=== PATIENT | male | born 1995 | race Caucasian/White ===

== ENCOUNTER 2022-08-16 17:41 | Inpatient (IN) | payer MEDICAID, SELFPAY ==
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
[2022-08-16 17:48] VITALS: BP 115/78; PULSE 104; RESP 16; TEMP 36.6; O2SAT 99; BMI 21.2
[2022-08-16 18:13] VITALS: BP 115/78; PULSE 104; RESP 16; TEMP 36.6; O2SAT 99
[2022-08-16 18:32] LABS: Basophils # 0.1 10^3/uL (0.0-0.1); Basophils % 1.3 %; Eosinophils # 0.4 10^3/uL (0.0-0.8); Eosinophils % 4.9 %; Hemoglobin 17.1 g/dL (11.7-16.6); Lymphocytes # 2.3 10^3/uL (0.8-4.8); Mean Corpuscular HGB Conc 32.9 g/dL (30.0-36.0); Mean Corpuscular Hemoglobin 29.9 pg (28.0-34.0); Mean Corpuscular Volume 90.9 fl (80-94); Mean Platelet Volume 9.9 fL (7.4-10.4); Monocytes # 0.6 10^3/uL (0.2-0.9); Monocytes % 7.8 %; Neutrophils % 54.6 %; Nucleated Red Blood Cells % 0 %; Platelet Count 305 10^3/cmm (130-400); Red Blood Count 5.72 10^6/uL (4.1-5.3); Red Cell Distribution Width 11.9 % (12.1-15.1); White Blood Count 7.5 10^3/uL (4.0-10.0)
[2022-08-16 18:49] LABS: Acetaminophen < 5.0 ug/mL (10-30); Alanine Aminotransferase 24 U/L (0-41); Albumin Level 4.3 g/dL (3.5-5.2); Alcohol Level 176 mg/dL (0-10); Alkaline Phosphatase 91 U/L (40-130); Anion Gap 13.8 (5-19); Aspartate Amino Transferase 28 U/L (0-40); Blood Urea Nitrogen 8 mg/dL (6-20); Calcium 8.7 mg/dL (8.5-10.5); Carbon Dioxide 27 mmol/L (22-29); Chloride 105 mmol/L (98-107); Globulin 2.7 g/dL (1.3-4.6); Glomerular Filtration Rate 133.3 mL/min (90-130); Glucose 102 mg/dL (65-115); Osmolality Calculated 293 mOsm/kg (285-295); Potassium 3.8 mmol/L (3.5-5.1); Salicylate < 0.3 mg/dL (3-10); Sodium 142 mmol/L (136-145); Total Bilirubin 0.3 mg/dL (0.15-1.2)
[2022-08-16 22:00] VITALS: BP 136/93; PULSE 98; RESP 17; TEMP 36.7; O2SAT 100
[2022-08-16] MEDS: hyDROXYzine 25 mg Capsule 50 MG PO (22:36)
[2022-08-16] MEDS: trazodone 50 mg Tablet PO (22:36)
[2022-08-16] MEDS: guanfacine 1 mg Tablet PO (22:36)
[2022-08-16] MEDS: docusate sodium 100 mg Capsule PO (22:36)
[2022-08-16 22:48] LABS: Amphetamines Screen Urine Negative (Negative); Barbiturates Screen Urine Negative (Negative); Benzodiazepines Screen Urine Negative (Negative); Cocaine Screen Urine Negative (Negative); Opiate Screen Urine Negative (Negative); PCP Screen Urine Negative (Negative); THC Screen Urine Negative (Negative)
[2022-08-17 06:00] VITALS: BP 142/101; PULSE 109; RESP 17; TEMP 36.6; O2SAT 96
[2022-08-17] MEDS: multivitamin therapeutic Tablet 1 TAB PO (08:38)
[2022-08-17] MEDS: folic acid 1 mg Tablet PO (08:38)
[2022-08-17] MEDS: docusate sodium 100 mg Capsule PO (08:38)
[2022-08-17] MEDS: thiamine 100 mg Tablet PO (08:38)
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
[2022-08-17 13:36] VITALS: BP 164/79; PULSE 84; RESP 16; TEMP 36.7; O2SAT 98
[2022-08-17] MEDS: duloxetine 30 mg Capsule PO (14:28)
[2022-08-17] MEDS: trazodone 50 mg Tablet PO (19:53)
[2022-08-17] MEDS: guanfacine 1 mg Tablet PO (19:53)
[2022-08-17 20:40] VITALS: BP 137/96; PULSE 100; RESP 18; TEMP 36.7; O2SAT 96
[2022-08-18 06:00] VITALS: BP 141/87; PULSE 113; RESP 18; TEMP 36.7; O2SAT 95
[2022-08-18] MEDS: thiamine 100 mg Tablet PO (08:27)
[2022-08-18] MEDS: folic acid 1 mg Tablet PO (08:27)
[2022-08-18] MEDS: duloxetine 30 mg Capsule PO (08:27)
[2022-08-18] MEDS: multivitamin therapeutic Tablet 1 TAB PO (08:27)
[2022-08-18] MEDS: docusate sodium 100 mg Capsule PO (12:56)
--- NOTE | 2022-08-18 13:13 | W.PM.NPUPNS ---
Subjective NPU Subjective: Patient is a 27-year-old white male admitted with a history of cerebral palsy, depression and PTSD. Patient reported having some chronic pain issues. He had reported not having a place to stay currently as he does not wish to return to live with his sister due to his significant conflict in that home. He had reported a history of occasional anger outburst but minimized any nightmares or flashbacks currently. He was agreeable to come to doing to try to obtain psychotherapy and stated that he needed medications to help with his depression. He had reported extended periods of depressed mood feelings of hopelessness and sadness with occasional suicidal thoughts. He reported no suicidal thoughts today and reported some improvement in sleep. He reported no side effects from the Cymbalta at this time. Mental Status Exam MSE Comments: Patient is a 27-year-old white male who appeared younger than his stated age he was friendly and cooperative on interview with normal hygiene and normal gait with no evidence of any abnormal involuntary motor movements tics or tremors appreciated. His speech was somewhat slow but steady with normal volume and productivity. His mood was described as depressed. His affect was mood congruent and restricted in range. There was no evidence of any abnormal involuntary motor movements tics or tremors appreciated. There is no clear evidence of delusional thinking. He did not appear to be responding to internal stimuli. His attention span was varied. He had endorsed suicidal thoughts with no active plan at this time. He denied any homicidal ideation. His insight was poor. His judgment was poor as well. His impulse control was limited. Vitals/I&O/Wt Last Vital Signs Temp 98.1 F 08/18/22 06:00 Pulse 113 H 08/18/22 06:00 Resp 18 08/18/22 06:00 BP 141/87 08/18/22 06:00 Pulse Ox 95 08/18/22 06:00 O2 Del Method 08/18/22 06:00 Weight last 48 hrs Weight 63.503 kg Data NPU 08/16/22 18:25 08/16/22 18:25 A&P Assessment and plan (1) Major depressive disorder: (2) PTSD (post-traumatic stress disorder): (3) Suicidal ideation: Plan Moisés is a 27-year-old white male with a history of cerebral palsy with a additional history of depression and PTSD admitted with suicidal thoughts with significant psychosocial stressors including homelessness. 1.? Continue Cymbalta 30mg daily with increase to 60mg in 1-2 days. 2.? Encourage individual, group and milieu therapy 3.? Continue q-15 minute check for safety 4.? Recommend sober living treatment at the highest level of care to which the patient is willing to commit. Involuntary Hold Information 96 Hour Hold: 96 Hour Involuntary Admission: Yes 96 Hour Hold Ending Date: 08/22/22 96 Hour Hold Ending Time: 18:40 Attestations NPU Medical Necessity Statement*: Inpatient hospitalization is medically necessary and the clinically appropriate intervention at this time. We will monitor medications and make changes as indicated with likely stay in 1-2 days. Coding Level of Care Code Established Pt Acute Framing Manager for Audrag Fwd Patient Type Established History Problem Focused Exam Problem Focused Medical Decision Making Straight Forward Diagnoses Major depressive disorder F32.9 PTSD (post-traumatic stress disorder) F43.10 Suicidal ideation R45.852
[2022-08-18 14:00] VITALS: BP 148/96; PULSE 84; RESP 16; TEMP 36.6; O2SAT 96
[2022-08-18] MEDS: trazodone 50 mg Tablet PO (20:33)
[2022-08-18] MEDS: guanfacine 1 mg Tablet PO (20:33)
[2022-08-18] MEDS: hyDROXYzine 25 mg Capsule 50 MG PO (20:33)
[2022-08-18 20:45] VITALS: BP 151/97; PULSE 108; RESP 18; TEMP 36.8; O2SAT 99
[2022-08-19 06:00] VITALS: BP 117/79; PULSE 100; RESP 16; TEMP 36.4; O2SAT 98
[2022-08-19] MEDS: multivitamin therapeutic Tablet 1 TAB PO (10:01)
[2022-08-19] MEDS: duloxetine 30 mg Capsule PO (10:01)
[2022-08-19] MEDS: folic acid 1 mg Tablet PO (10:01)
[2022-08-19] MEDS: thiamine 100 mg Tablet PO (10:02)
[2022-08-19 14:00] VITALS: BP 131/79; PULSE 89; RESP 18; TEMP 36.6; O2SAT 99
--- NOTE | 2022-08-19 18:17 | W.PM.NPUPNS ---
Subjective NPU Subjective: Patient is a 27-year-old white male admitted with a history of cerebral palsy, depression and PTSD. Patient had reported being bored. He reported no side effects from his Cymbalta. He had acknowledged having frustration with dealing with negativity in his household. He reported no feelings of hopelessness and stated that he simply wished to find a different place to live when he left here. He did not endorse any suicidal thoughts. He reported no nightmares currently. He reported problems with low energy and low motivation. Mental Status Exam MSE Comments: Patient is a 27-year-old white male who appeared younger than his stated age he was friendly and cooperative on interview with normal hygiene and normal gait with no evidence of any abnormal involuntary motor movements tics or tremors appreciated. His speech was somewhat slow but steady with normal volume and productivity. His mood was described as depressed. His affect was mood congruent and restricted in range. There was no evidence of any abnormal involuntary motor movements tics or tremors appreciated. There is no clear evidence of delusional thinking. He did not appear to be responding to internal stimuli. His attention span was varied. He had endorsed suicidal thoughts with no active plan at this time. He denied any homicidal ideation. His insight was poor. His judgment was poor as well. His impulse control was limited. Vitals/I&O/Wt Last Vital Signs Temp 97.9 F 08/19/22 14:00 Pulse 89 08/19/22 14:00 Resp 18 08/19/22 14:00 BP 131/79 08/19/22 14:00 Pulse Ox 99 08/19/22 14:00 O2 Del Method 08/19/22 06:00 Data NPU 08/16/22 18:25 08/16/22 18:25 A&P Assessment and plan (1) Major depressive disorder: (2) PTSD (post-traumatic stress disorder): (3) Suicidal ideation: Plan Moisés is a 27-year-old white male with a history of cerebral palsy with a additional history of depression and PTSD admitted with suicidal thoughts with significant psychosocial stressors including homelessness. 1.? Continue Cymbalta 30mg daily with increase to 60mg in 1-2 days. 2.? Encourage individual, group and milieu therapy 3.? Continue q-15 minute check for safety 4.? Recommend sober living treatment at the highest level of care to which the patient is willing to commit. Involuntary Hold Information 96 Hour Hold: 96 Hour Involuntary Admission: Yes 96 Hour Hold Ending Date: 08/22/22 96 Hour Hold Ending Time: 18:40 Attestations NPU Medical Necessity Statement*: Inpatient hospitalization is medically necessary and the clinically appropriate intervention at this time. We will monitor medications and make changes as indicated with likely stay in 1-2 days. Coding Level of Care Code Established Pt Acute Paper Twister for Chg Fwd Patient Type Established History Problem Focused Exam Problem Focused Medical Decision Making Straight Forward Diagnoses Major depressive disorder F32.9 PTSD (post-traumatic stress disorder) F43.10 Suicidal ideation R45.853
[2022-08-19 20:24] VITALS: BP 137/90; PULSE 94; RESP 18; TEMP 36.7; O2SAT 99
[2022-08-19] MEDS: trazodone 50 mg Tablet PO (20:43)
[2022-08-19] MEDS: guanfacine 1 mg Tablet PO (23:59)
[2022-08-20] MEDS: multivitamin therapeutic Tablet 1 TAB PO (08:46)
[2022-08-20] MEDS: folic acid 1 mg Tablet PO (08:46)
[2022-08-20] MEDS: thiamine 100 mg Tablet PO (08:46)
[2022-08-20] MEDS: duloxetine 30 mg Capsule PO (08:46)
[2022-08-20 14:00] VITALS: BP 131/84; PULSE 110; RESP 18; TEMP 36.9; O2SAT 98
--- NOTE | 2022-08-20 15:12 | W.PM.NPUPNS ---
Subjective NPU Subjective: Patient is a 27-year-old white male admitted with a history of cerebral palsy, depression and PTSD. The patient had reported a myriad of side effects associated with his Cymbalta. He described that his heart is been beating faster. He described having some nighttime confusion as he had read in the list of side effects of medication. He had complained of dry mouth and reported having difficulties with urination since he had arrived in the hospital. The patient had reported depressed mood and reported that he had difficulties with managing pain. He reports having significant muscle aches and due to his longstanding history of cerebral palsy. He had complained of having low energy and low motivation. He had reported some hope at being able to live in an alternative living situation away from his sister as he states that that would help him immensely. Mental Status Exam MSE Comments: Patient is a 27-year-old white male who appeared younger than his stated age he was friendly and cooperative on interview with normal hygiene and normal gait with no evidence of any abnormal involuntary motor movements tics or tremors appreciated. He endorsed a variety of somatic complaints. His speech was somewhat slow but steady with normal volume and productivity. His mood was described as depressed. His affect was mood congruent and restricted in range. There was no evidence of any abnormal involuntary motor movements tics or tremors appreciated. There is no clear evidence of delusional thinking. He did not appear to be responding to internal stimuli. His attention span was varied. He had endorsed suicidal thoughts with no active plan at this time. He denied any homicidal ideation. His insight was poor. His judgment was poor as well. His impulse control was limited. Vitals/I&O/Wt Last Vital Signs Temp 98.1 F 08/19/22 20:24 Pulse 94 08/19/22 20:24 Resp 18 08/19/22 20:24 BP 137/90 08/19/22 20:24 Pulse Ox 99 08/19/22 20:24 O2 Del Method 08/19/22 06:00 Data NPU 08/16/22 18:25 08/16/22 18:25 A&P Assessment and plan (1) Major depressive disorder: (2) PTSD (post-traumatic stress disorder): (3) Suicidal ideation: Plan Moisés is a 27-year-old white male with a history of cerebral palsy with a additional history of depression and PTSD admitted with suicidal thoughts with significant psychosocial stressors including homelessness. 1 reduce Cymbalta to 20 mg today and monitor for continued side effects. 2.? Encourage individual, group and milieu therapy 3.? Continue q-15 minute check for safety 4.? Recommend sober living treatment at the highest level of care to which the patient is willing to commit. Involuntary Hold Information 96 Hour Hold: 96 Hour Involuntary Admission: Yes 96 Hour Hold Ending Date: 08/22/22 96 Hour Hold Ending Time: 18:40 Attestations NPU Medical Necessity Statement*: Inpatient hospitalization is medically necessary and the clinically appropriate intervention at this time. We will monitor medications and make changes as indicated with likely stay in 1-2 days. Coding Level of Care Code Established Pt Acute Morning News Producer for Sylvia Hoffman Patient Type Established History Problem Focused Exam Problem Focused Medical Decision Making Straight Forward Diagnoses Major depressive disorder F32.9 PTSD (post-traumatic stress disorder) F43.10 Suicidal ideation R45.853
[2022-08-20] MEDS: guanfacine 1 mg Tablet PO (19:55)
[2022-08-20] MEDS: trazodone 50 mg Tablet PO (19:58)
[2022-08-20 21:12] VITALS: BP 138/91; PULSE 118; RESP 18; TEMP 36.8; O2SAT 95
[2022-08-21 06:00] VITALS: BP 108/71; PULSE 79; RESP 18; TEMP 36.4; O2SAT 97
[2022-08-21] MEDS: thiamine 100 mg Tablet PO (08:31)
[2022-08-21] MEDS: multivitamin therapeutic Tablet 1 TAB PO (08:31)
[2022-08-21] MEDS: duloxetine 20 mg Capsule PO (08:31)
[2022-08-21] MEDS: folic acid 1 mg Tablet PO (08:31)
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
[2022-08-21 14:00] VITALS: BP 153/93; PULSE 97; RESP 17; TEMP 36.8; O2SAT 97
[2022-08-21] MEDS: guanfacine 1 mg Tablet PO (19:49)
[2022-08-21] MEDS: trazodone 50 mg Tablet PO (19:52)
[2022-08-21 19:58] VITALS: BP 136/101; PULSE 97; RESP 18; TEMP 36.9; O2SAT 97
[2022-08-22 06:00] VITALS: BP 121/88; PULSE 100; RESP 18; TEMP 36.7; O2SAT 96
[2022-08-22] MEDS: duloxetine 20 mg Capsule PO (09:07)
[2022-08-22] MEDS: multivitamin therapeutic Tablet 1 TAB PO (09:07)
[2022-08-22] MEDS: thiamine 100 mg Tablet PO (09:07)
[2022-08-22] MEDS: folic acid 1 mg Tablet PO (09:08)
[2022-08-22 14:00] VITALS: BP 146/90; PULSE 97; RESP 17; TEMP 36.8; O2SAT 97
--- NOTE | 2022-08-22 17:17 | P.NPUPN_ITS ---
Subjective NPU Subjective: Patient is a 27-year-old white male admitted with a history of cerebral palsy, depression and PTSD. The patient had endorsed that he had felt overly tired on the Cymbalta and states that he wished to consider a different medication. He continued to describe having some improvement in pain but states that the Cymbalta made him feel numb. Patient had reported that he would like to consider living with his mother if possible and he states that he did not wish to consider a detention if possible. Patient had been social on the milieu and less isolative. He continued to report a long history of insomnia. He had reported a long history of being able to manage his own care given his reported physical problems. He continued to report having chronic difficulties with aching legs. Mental Status Exam MSE Comments: Patient is a 27-year-old white male who appeared younger than his stated age he was friendly and cooperative on interview with normal hygiene and normal gait with no evidence of any abnormal involuntary motor movements tics or tremors appreciated. He remained somatically preoccupied. His speech was somewhat slow but steady with normal volume and productivity. His mood was described as numb. His affect was mood incongruent and remained restricted in range. There was no evidence of any abnormal involuntary motor movements tics or tremors appreciated. There is no clear evidence of delusional thinking. He did not appear to be responding to internal stimuli. His attention span was varied. He had endorsed suicidal thoughts with no active plan at this time. He denied any homicidal ideation. His insight was poor. His judgment was poor as well. His impulse control was limited. Vitals/I&O/Wt Last Vital Signs Temp 98.3 F 08/22/22 14:00 Pulse 97 08/22/22 14:00 Resp 17 08/22/22 14:00 BP 146/90 08/22/22 14:00 Pulse Ox 97 08/22/22 14:00 O2 Del Method 08/19/22 06:00 Data NPU 08/16/22 18:25 08/16/22 18:25 A&P Assessment and plan (1) Major depressive disorder: (2) PTSD (post-traumatic stress disorder): (3) Suicidal ideation: Plan Moisés is a 27-year-old white male with a history of cerebral palsy with a additional history of depression and PTSD admitted with suicidal thoughts with significant psychosocial stressors including homelessness. 1 Discontinue cymbalta and start mirtazipine 15mg at night, continue to monitor for continued side effects from medication. 2.? Encourage individual, group and milieu therapy 3.? Continue q-15 minute check for safety 4.? Recommend sober living treatment at the highest level of care to which the patient is willing to commit. Involuntary Hold Information 96 Hour Hold: 96 Hour Involuntary Admission: Yes 96 Hour Hold Ending Date: 08/22/22 96 Hour Hold Ending Time: 18:40 Attestations NPU Medical Necessity Statement*: Inpatient hospitalization is medically necessary and the clinically appropriate intervention at this time. We will monitor medications and make changes as indicated with likely stay in 2-3 days. Coding Level of Care Code Established Pt Acute Computer [employer] Para Professional for Sylvia Hoffman Patient Type Established History Problem Focused Exam Problem Focused Medical Decision Making Straight Forward Diagnoses Major depressive disorder F32.9 PTSD (post-traumatic stress disorder) F43.10 Suicidal ideation R45.859
[2022-08-22] MEDS: mirtazapine 15 mg Tablet PO (19:50)
[2022-08-22] MEDS: trazodone 50 mg Tablet PO (19:51)
[2022-08-22] MEDS: guanfacine 1 mg Tablet PO (19:51)
[2022-08-22 20:30] VITALS: BP 150/90; PULSE 90; RESP 17; TEMP 36.7; O2SAT 97
[2022-08-23 06:00] VITALS: BP 118/81; PULSE 86; RESP 17; TEMP 36.4; O2SAT 98
[2022-08-23] MEDS: thiamine 100 mg Tablet PO (09:02)
[2022-08-23] MEDS: folic acid 1 mg Tablet PO (09:02)
[2022-08-23] MEDS: multivitamin therapeutic Tablet 1 TAB PO (09:02)
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
[2022-08-23 13:49] VITALS: BP 118/81; PULSE 86; RESP 17; TEMP 36.4; O2SAT 98
== END 2022-08-23 14:15 | disposition home or self-care (01) | DRG 881 ==
LOC: ER 18:20 → NP 18:59
PROVIDERS: Admitting Provider Psychiatry & Neurology Psychiatry; Emergency Provider Emergency Medicine; Visit Provider Psychiatry & Neurology Psychiatry
DX: F32.9 Major depressive disorder, single episode, unspecified (principal); R45.851 Suicidal ideations; F43.10 Post-traumatic stress disorder, unspecified; Z62.810 Personal history of physical and sexual abuse in childhood; G80.9 Cerebral palsy, unspecified; G89.29 Other chronic pain
CPT/HCPCS: 80053; 80306; 80307; 85025; 97150; 97165; 99285

== ENCOUNTER 2024-03-12 06:00 | Outpatient (CLI) | payer MEDICAID, SELFPAY | END 2024-03-12 06:01 | disposition home or self-care (01) | LOC: RAD 05-27 13:00 | PROVIDERS: Visit Provider Nurse Practitioner Family | DX: D48.5 Neoplasm of uncertain behavior of skin (principal); Q83.3 Accessory nipple; D22.5 Melanocytic nevi of trunk; Z80.8 Family history of malignant neoplasm of other organs or systems; N63.0 Unspecified lump in unspecified breast | CPT/HCPCS: 11102; 99203 ==

== ENCOUNTER → 2025-05-13 14:45 | Outpatient (BNVA) | payer MEDICAID, SELFPAY | PROVIDERS: Visit Provider Nurse Practitioner Family | DX: N63.0 Unspecified lump in unspecified breast (principal); Q83.3 Accessory nipple; D22.5 Melanocytic nevi of trunk; Z80.8 Family history of malignant neoplasm of other organs or systems | CPT/HCPCS: 99213 ==